=== PATIENT | female | born 1950 | race American Indian/Alaskan Native ===

== ENCOUNTER 2016-10-28 10:00 | Outpatient (CLI) | payer OTHER ==
--- NOTE | 2016-10-28 11:13 | Mammography Report ---
Bilateral mammogram: Compared to 10/26/15. CAD study utilized. Findings: The predominance of adipose tissue bilaterally. Focal linear density asymmetry upper anterior left breast and in the posterior right breast. No microcalcification. Benign axillary nodes. Impression: Focal dense asymmetry upper anterior left breast and inner posterior right breast. Recommend spot negative study sonographic examination. BI-RADS CATEGORY: 0 = Needs additional imaging evaluation ACR BI-RADS MAMMOGRAPHIC CODES: 0 = Needs additional imaging evaluation; 1 = Negative; 2 = Benign; 3 = Probably benign; 4 = Suspicious; 5 = Malignant; 6 = Known biopsy-proven malignancy COMMENT: 1. Dense breast tissue, i.e., adenosis, fibrocystic changes, etc., may obscure an underlying neoplasm. 2. Approximately 10% of cancers are not detected with mammography. 3. A negative mammography report should not delay biopsy if a clinically suspicious mass is present. COMMENT: Patient follow-up letters are generated in [employer].
== END 2016-10-28 10:01 | disposition home or self-care (01) ==
LOC: MAMMO 10:00
PROVIDERS: ATTEND Obstetrics & Gynecology
DX: Z12.31 Encounter for screening mammogram for malignant neoplasm of breast (principal)
CPT/HCPCS: 77067; G0202

== ENCOUNTER 2016-11-16 11:23 | Outpatient (CLI) | payer OTHER ==
--- NOTE | 2016-11-16 12:05 | Mammography Report ---
Bilateral digital diagnostic mammogram. History: Recall for parenchymal asymmetries. Findings: On the right side, a spot compression image of the medial breast in the CC projection demonstrates complete effacement of the previously noted density. Also, this is not identified on a 90degree lateral medial view. A spot compression image of the upper left breast demonstrates complete effacement of the previously noted asymmetry. No suspicious findings are seen. Impression: No suspicious findings. BI-RADS code: 1. Recommendation: Annual screening.
== END 2016-11-16 11:24 | disposition home or self-care (01) ==
LOC: MAMMO 11:23
PROVIDERS: ATTEND Obstetrics & Gynecology
DX: R92.8 Other abnormal and inconclusive findings on diagnostic imaging of breast (principal)
CPT/HCPCS: 77066; G0204

== ENCOUNTER 2017-11-03 12:01 | Outpatient (CLI) | payer OTHER ==
--- NOTE | 2017-11-03 14:05 | Mammography Report ---
Bilateral mammogram: Compared to 10/28/16 and 11/16/16. CAD study utilized. Findings: Predominance adipose tissue bilaterally. No mass or microcalcification. Benign axillary nodes. Impression: Benign findings. Annual followup recommended. BI-RADS CATEGORY: 2 = Benign ACR BI-RADS MAMMOGRAPHIC CODES: 0 = Needs additional imaging evaluation; 1 = Negative; 2 = Benign; 3 = Probably benign; 4 = Suspicious; 5 = Malignant; 6 = Known biopsy-proven malignancy COMMENT: 1. Dense breast tissue, i.e., adenosis, fibrocystic changes, etc., may obscure an underlying neoplasm. 2. Approximately 10% of cancers are not detected with mammography. 3. A negative mammography report should not delay biopsy if a clinically suspicious mass is present.
== END 2017-11-03 12:02 | disposition home or self-care (01) ==
LOC: MAMMO 12:01
PROVIDERS: ATTEND Obstetrics & Gynecology
DX: Z12.31 Encounter for screening mammogram for malignant neoplasm of breast (principal)
CPT/HCPCS: 77067

== ENCOUNTER 2020-08-19 10:10 | Outpatient (CLI) | payer MEDICARE ==
--- NOTE | 2020-08-19 11:28 | Mammography Report ---
DIGITAL DIAGNOSTIC MAMMOGRAM WITH CAD , 08/19/2020 CLINICAL INFORMATION / INDICATION: The patient reports intermittent left breast pain for 3 weeks. TECHNIQUE: Digital bilateral mammographic imaging was performed. This examination was interpreted with the benefit of Computer-aided Detection analysis. COMPARISON: 11/03/2017, 11/16/2016, 10/28/2016, 10/26/2015 FINDINGS: Breast Density: There are scattered areas of fibroglandular density. No dominant mass, suspicious calcifications or architectural distortion in either breast. There is no focal abnormality to account for the patient's left breast pain. IMPRESSION: No mammographic evidence of malignancy. Clinical correlation is recommended for the patie nt's intermittent left breast pain. Follow up recommendation: Clinical exam BI-RADS Category 1: Negative. A "normal" or negative report should not discourage follow up or biopsy of a clinically significant f inding. A written summary of these findings will be mailed to the patient. The patient will be entered into a mammography reporting system which will generate a reminder letter for the patient's next appointmen t at the appropriate interval. According to the [employer], yearly mammograms are recommended starting at age 40 and continuing as long as a woman is in good health. Breast MRI is recommended for women with an jarvis roximately 20-25% or greater lifetime risk of breast cancer, including women with a strong family his tory of breast or ovarian cancer and women who have been treated for Hodgkin's disease. Signer Name: Bernadine Arce MD Signed: 08/19/2020 11:24 AM Workstation Name: [id number]
== END 2020-08-19 10:11 | disposition home or self-care (01) ==
LOC: MAMMO 10:10
PROVIDERS: ATTEND Obstetrics & Gynecology
DX: N64.4 Mastodynia (principal); R92.8 Other abnormal and inconclusive findings on diagnostic imaging of breast
CPT/HCPCS: 77066